=== PATIENT | female | born 1970 ===

== ENCOUNTER 2018-01-08 15:59 | Emergency (ER) | payer SELFPAY ==
[2018-01-08 16:14] VITALS: RESP 16; O2SAT 99
[2018-01-08] MEDS ORDERED: Albuterol 0.083% Inhal Sol (2.5 mg/3 mL) UD INH STA (17:55)
[2018-01-08] MEDS ORDERED: Promethazine/Cod 6.25mg-10mg/5ml Syr UD PO STA (17:56)
[2018-01-08] MEDS ORDERED: Albuterol 0.083% Inhal Sol (2.5 mg/3 mL) UD ONE (18:00)
[2018-01-08] MEDS ORDERED: Promethazine/Cod 6.25mg-10mg/5ml Syr UD ONE (18:01)
--- NOTE | 2018-01-08 18:11 | ED PDOC ---
HPI: General Adult Time Seen by Provider: 01/08/18 17:12 Chief Complaint (Nursing): Cough, Cold, Congestion Chief Complaint (Provider): cough, chest congestion History Per: Patient History/Exam Limitations: no limitations Onset/Duration Of Symptoms: Days (one week) Current Symptoms Are (Timing): Better Additional Complaint(s): Iliana Fu, a 47 year old female presents to the ED complaining of cough and chest congestion onset one week ago. Reports whenever she coughs, she has chest pain. Also has fever. She takes medication for the fever. States she went to another hospital and they told her she did not have flu. PMD: Shy Rausch Past Medical History Reviewed: Historical Data, Nursing Documentation, Vital Signs Vital Signs: Last Vital Signs Temp 98.8 F 01/08/18 16:10 Pulse 71 01/08/18 16:10 Resp 16 01/08/18 16:10 BP 149/83 01/08/18 16:10 Pulse Ox 99 01/08/18 18:20 - Medical History PMH: No Chronic Diseases - Surgical History Surgical History: Appendectomy - Family History Family History: States: Unknown Family Hx - Home Medications Home Medications: Ambulatory Orders Medication Instructions Recorded Albuterol HFA [Ventolin HFA 90 1 puff IH Q4 PRN #1 inh 01/08/18 mcg/actuation (8 g)] Azithromycin [Z-Yang] 250 mg PO ASDIR #6 tab 01/08/18 - Allergies Allergies/Adverse Reactions: Allergies Allergy/AdvReac Type Severity Reaction Status Date / Time No Known Allergies Allergy Verified 01/08/18 16:10 Review of Systems ROS Statement: Except As Marked, All Systems Reviewed And Found Negative Constitutional: Positive for: Fever (tactile) Cardiovascular: Positive for: Chest Pain (whenever she coughs), Other (chest congestion) Respiratory: Positive for: Cough Physical Exam - Reviewed Nursing Documentation Reviewed: Yes - Physical Exam Appears: Positive for: Well, Non-toxic, No Acute Distress Head Exam: Positive for: ATRAUMATIC, NORMAL INSPECTION, NORMOCEPHALIC Skin: Positive for: Normal Color, Warm, Dry Eye Exam: Positive for: EOMI, Normal appearance, PERRL ENT: Positive for: Normal ENT Inspection Neck: Positive for: Normal, Painless ROM, Supple. Negative for: Decreased ROM Cardiovascular/Chest: Positive for: Regular Rate, Rhythm. Negative for: Murmur , Bradycardia Respiratory: Positive for: Normal Breath Sounds. Negative for: Accessory Muscle Use, Wheezing, Respiratory Distress Gastrointestinal/Abdominal: Positive for: Normal Exam, Bowel Sounds, Soft. Negative for: Tenderness Back: Positive for: Normal Inspection. Negative for: L CVA Tenderness, R CVA Tenderness Extremity: Positive for: Normal ROM. Negative for: Tenderness, Pedal Edema, Deformity Neurologic/Psych: Positive for: Alert, Oriented (x3) - ECG O2 Sat by Pulse Oximetry: 99 (RA) Pulse Ox Interpretation: Normal Medical Decision Making Medical Decision Making: Time: 17:55 Initial Impression: Bronchitis and Upper respiratory tract infection Differential Diagnosis includes but is not limited to: pneumonia Initial Plan: --Chest X-ray --Albuterol 2.5mg --Phenergan/Codeine 5ml --Peak Flow Pre/Post Treatment --Influenza A B --Reevaluation Documented by Sharee Sebastian acting as a scribe for Malou Dewey MD. All medical record entries made by the Scribe were at my direction and personally dictated by me. I have reviewed the chart and agree that the record accurately reflects my personal performance of the history, physical exam, medical decision making, and the department course for this patient. I have also personally directed, reviewed, and agree with the discharge instructions and disposition. Disposition - Clinical Impression Clinical Impression: Bronchitis - Patient ED Disposition Is Patient to be Admitted: No Doctor Will See Patient In The: Office Counseled Patient/Family Regarding: Studies Performed, Diagnosis, Need For Followup - Disposition Referrals: [facility] [Outside] Disposition: Routine/Home Disposition Time: 19:20 Condition: GOOD Additional Instructions: Follow up with your PCP in 2-3 days. Prescriptions: Albuterol HFA [Ventolin HFA 90 mcg/actuation (8 g)] 1 puff IH Q4 PRN #1 inh PRN Reason: Cough Azithromycin [Z-Yang] 250 mg PO ASDIR #6 tab Instructions: Acute Bronchitis (ED)
[2018-01-08 19:45] VITALS: BP 134/81; PULSE 66; TEMP 98.2
--- NOTE | 2018-01-09 10:38 | RAD ---
HISTORY: cough fever COMPARISON: Comparison made with chest dated 04/18/2013 TECHNIQUE: Chest PA and lateral FINDINGS: LUNGS: No acute consolidation. Previously described granuloma right upper lung field less well seen on this study compared the prior exam. PLEURA: No significant pleural effusion identified. No pneumothorax apparent. CARDIOVASCULAR: Normal. OSSEOUS STRUCTURES: No significant abnormalities. VISUALIZED UPPER ABDOMEN: Normal. OTHER FINDINGS: None. IMPRESSION: No a acute consolidation. Previously described granuloma right upper lung field less well
== END 2018-01-08 19:46 | disposition home or self-care (01) ==
LOC: H.ER 15:59
DX: J40 Bronchitis, not specified as acute or chronic (principal); J84.10 Pulmonary fibrosis, unspecified

== ENCOUNTER 2019-03-24 22:22 | Inpatient (IN) | payer SELFPAY ==
[2019-03-24 22:43] VITALS: BMI 26.6
[2019-03-24] MEDS ORDERED: Morphine 4 MG/ML VIAL IVP ONE (23:14)
--- NOTE | 2019-03-24 23:16 | ED PDOC ---
HPI: General Adult Time Seen by Provider: 03/24/19 23:14 Chief Complaint (Nursing): Abdominal Pain Chief Complaint (Provider): ABDOMINAL PAIN History Per: Patient (48 Y/O FEMALE HERE WITH RUQ ABDOMINAL PAIN X 2 DAYS CONTINUOUS. HAS NAUSEA/NO VOMITING. DENIES ANY FEVERS/CHILLS. DENIES ANY DYSURIA. HAS H/O APPENDECTOMY. NOTES CONSTIPATION.) Past Medical History Reviewed: Historical Data, Nursing Documentation, Vital Signs Vital Signs: Last Vital Signs Temp 97.7 F 03/24/19 22:43 Pulse 71 03/24/19 22:43 Resp 18 03/24/19 22:43 BP 132/77 03/24/19 22:43 Pulse Ox 99 03/24/19 22:43 Primary Care Provider: Procedure,Nonphys - Medical History PMH: Hypercholesterolemia, Hyperthyroidism, Hypothyroidism - Surgical History Surgical History: Appendectomy - Family History Family History: States: Unknown Family Hx - Immunization History Hx Tetanus Toxoid Vaccination: No Hx Influenza Vaccination: No Hx Pneumococcal Vaccination: No - Home Medications Home Medications: Ambulatory Orders Medication Instructions Recorded Levothyroxine [Synthroid] 0.05 mg PO DAILY 11/26/14 Naproxen [Naprosyn] 500 mg PO Q12 03/25/19 - Allergies Allergies/Adverse Reactions: Allergies Allergy/AdvReac Type Severity Reaction Status Date / Time No Known Allergies Allergy Verified 03/24/19 22:43 Review of Systems ROS Statement: Except As Marked, All Systems Reviewed And Found Negative Gastrointestinal: Positive for: Nausea, Abdominal Pain Physical Exam - Reviewed Nursing Documentation Reviewed: Yes Vital Signs Reviewed: Yes - Physical Exam Appears: Positive for: Well, Non-toxic, No Acute Distress Head Exam: Positive for: ATRAUMATIC, NORMAL INSPECTION, NORMOCEPHALIC Skin: Positive for: Normal Color, Warm, DRY Eye Exam: Positive for: EOMI, Normal appearance, PERRL ENT: Positive for: Normal ENT Inspection Neck: Positive for: Normal, Painless ROM Cardiovascular/Chest: Positive for: Regular Rate, Rhythm Respiratory: Positive for: CNT, Normal Breath Sounds Gastrointestinal/Abdominal: Positive for: Normal Exam, Soft, Tenderness (RUQ TENDERNESS), Other (EPIGASTRIC TENDERNESS.) Back: Positive for: Normal Inspection Extremity: Positive for: Normal ROM Neurological/Psych: Positive for: Awake, Alert, Normal Tone - Laboratory Results Result Diagrams: 03/24/19 23:42 04/30/19 23:42 - ECG O2 Sat by Pulse Oximetry: 99 - Progress ED Course And Treament: NS 1 LITER WIDE OPEN MORPHINE 4MG IV X 1 DOSE ZOFRAN 4MG IV X 1 DOSE PEPCID 20 MG IV X 1 DOSE VBG REVIEWED LACTATE 2.3. US REVIEWED ACUTE VS CHRONIC CHOLECYSTITIS ZOSYN 3.375GM IV X 1 DOSE NS 2ND LITER WIDE OPEN REPEAT LACTATE 1.4 CASE D/W DR. DUGGAN HOSPITALIST PATIENT TO BE ADMITTED TO [facility] FOR CHOLECYSTITIS D/W SURG RESIDENT WHO WILL DISCUSS WITH SURG ATTENDING Medical Decision Making Medical Decision Makin:08 US FINDINGS: LIVER: Liver is slightly enlarged measuring 16.1 cm. The liver demonstrates increased echogenicity as can be seen in fatty infiltration or hepatocellular disease. No focal liver lesions identified. Portal vein demonstrates hepatopetal flow. GALLBLADDER: The gallbladder wall is thickened measuring 0.4 cm. There is gallbladder wall edema. However, the sonographic Davis sign is negative. Overall, several abnormal findings in the gallbladder which may represent mild acute or more likely chronic cholecystitis. If indicated, this could be further evaluated with HIDA scan including ejection fraction. COMMON BILE DUCT: Common bile duct is normal in caliber measuring 0.4 cm. PANCREAS: Pancreas has a normal sonographic appearance. KIDNEYS: At the right kidney is not visualized. SPLEEN: Unremarkable. AORTA: Visualized aorta and IVC appear unremarkable. IVC: Unremarkable as visualized. MISCELLANEOUS: Incidentally noted is focal fatty sparing by the steven hepatis. There are no gallstones present. However, there is echogenic sludge. IMPRESSION: 1. Mild hepatomegaly with hepatic steatosis. 2. The gallbladder wall is thickened measuring 0.4 cm. There are no gallstones present. However, there is echogenic sludge. There is gallbladder wall edema. However, the sonographic Davis sign is negative. Overall, several abnormal findings in the gallbladder which may represent mild acute or more likely chronic cholecystitis. If indicated, this could be further evaluated with HIDA scan including ejection fraction. 3. The right kidney is not visualized. 4. Portal vein demonstrates hepatopetal flow. Disposition - Clinical Impression Clinical Impression: Cholecystitis - Patient ED Disposition Is Patient to be Admitted: Yes - Disposition Disposition Time: 01:25 Condition: FAIR - Pt Status Changed To: Hospital Disposition Of: Inpatient - Admit Certification Admit to Inpatient:: After my assessment, the patient will require hospitalization for at least two midnights. This is because of the severity of symptoms shown, intensity of services needed, and/or the medical risk in this patient being treated as an outpatient.
[2019-03-24 23:54] LABS: VENOUS BLOOD GAS BASE EXCESS 1.7 mmol/L (0.0-2.0); VENOUS BLOOD GAS PCO2 48 mmHg (40-60); VENOUS BLOOD GAS PO2 40 mm/Hg (30-55); VENOUS BLOOD PH 7.37 (7.32-7.43)
[2019-03-24 23:57] LABS: BASO % 0.4 % (0.0-2.0); EOS # 0.2 K/uL (0.0-0.7); EOS % 2.3 % (0.0-4.0); HEMOGLOBIN 12.4 g/dL (12.0-16.0); LYMPH # 3.6 K/uL (1.0-4.3); LYMPH % 45.5 % (20.0-40.0); MEAN CELL VOLUME 89.1 fl (81.0-99.0); MEAN CORPUSCULAR HEMOGLOBIN 29.6 pg (27.0-31.0); MEAN CORPUSCULAR HGB CONC 33.2 g/dL (33.0-37.0); MEAN PLATELET VOLUME 8.3 fl (7.2-11.7); MONO # 0.6 K/uL (0.0-0.8); MONO % 7.6 % (0.0-10.0); NEUT # 3.5 K/uL (1.8-7.0); NEUT % 44.2 % (50.0-75.0); NRBC % 0.2 % (0.0-0.0); RBC 4.21 Mil/uL (3.80-5.20); WHITE BLOOD COUNT 7.9 K/uL (4.8-10.8)
[2019-03-24] MEDS ORDERED: Sodium Chloride 0.9% 1,000 ML IV STA (23:59)
[2019-03-25 00:06] LABS: SQUAMOUS EPITHIAL < 1 /hpf (0-5); URINE BILIRUBIN NEGATIVE (NEGATIVE); URINE BLOOD MODERATE (NEGATIVE); URINE CLARITY CLEAR (Clear); URINE COLOR STRAW (YELLOW); URINE GLUCOSE (UA) NEG (NEGATIVE); URINE LEUKOCYTE ESTERASE TRACE Leu/uL (Negative); URINE PROTEIN NEGATIVE (NEGATIVE); URINE UROBILINOGEN 0.2-1.0 mg/dL (0.2-1.0)
[2019-03-25 00:07] LABS: ALB/GLOB RATIO 1.4 (1.0-2.1); ALBUMIN 4.5 g/dL (3.5-5.0); ALT/SGPT 31 U/L (9-52); AST/SGOT 31 U/L (14-36); BLOOD UREA NITROGEN 18 mg/dl (7-17); CALCIUM 9.6 mg/dL (8.4-10.2); GFR NON-AFRICAN AMERICAN > 60; LIPASE 99 U/L (23-300)
[2019-03-25] MEDS ORDERED: Morphine 4 MG/ML VIAL ONE (00:40)
[2019-03-25] MEDS ORDERED: Piperacillin/Tazobact 3.375 GM in Sodium Chloride 0.9% 100 ML IVPB STA (00:45)
[2019-03-25] MEDS ORDERED: Sodium Chloride 0.9% 1,000 ML IV STA (01:23)
[2019-03-25] MEDS ORDERED: Piperacillin/Tazobact 3.375 gm Inj IVPB ONE (01:24)
--- NOTE | 2019-03-25 01:30 | CP.PCM.CON ---
<Papo Washington - Last Filed: 03/25/19 12:18> History of Present Illness - History of Present Illness History of Present Illness: General Surgery Consult for Dr. Evans Reason for consult: RUQ pain, suspected cholecystitis vs biliary colic 48 F with PMH of HLD and hypothyroidism present to [facility] for complaint of RUQ abdominal pain. Patient reports that abd pain began 2 days ago. She states that she has had an episode similar in the past. The previous episodes, including this one, was after eating. She rates pain as moderate and constant located in epigastrium radiating to RUQ. Symptoms aggravated by food. Admits to associated nausea but denies vomiting. Denies fever/chills, vomiting, CP, sob, diarrhea, constipation,urinary symptoms. PMD: [facility] PMH: HLD, hypothyroidism PSH: Appendectomy FH: brother with DM, Mom breast cancer ALL: NKDA SH: denies etoh, tobacco or ilicit drug use Review of Systems - Review of Systems All systems: reviewed and no additional remarkable complaints except (as per HPI) Past Patient History - Infectious Disease Hx of Infectious Diseases: None - Past Social History Smoking Status: Never Smoked - CARDIAC Hx Hypercholesterolemia: Yes - ENDOCRINE/METABOLIC Hx Hypothyroidism: Yes - GENITOURINARY/GYNECOLOGICAL Other/Comment: fibroids - PSYCHIATRIC Hx Substance Use: No - SURGICAL HISTORY Hx Appendectomy: Yes - ANESTHESIA Hx Anesthesia: Yes Meds Allergies/Adverse Reactions: Allergies Allergy/AdvReac Type Severity Reaction Status Date / Time No Known Allergies Allergy Verified 03/24/19 22:43 - Medications Medications: Current Medications Piperacillin Sod/Tazobactam (Sod 3.375 gm/ Sodium Chloride) 100 mls @ 100 mls/hr IVPB STAT STA; Protocol Stop: 03/25/19 01:44 Sodium Chloride (Sodium Chloride 0.9%) 1,000 mls @ 500 mls/hr IV .Q2H STA Stop: 03/25/19 03:22 Physical Exam - Constitutional Appears: No Acute Distress - Head Exam Head Exam: ATRAUMATIC, NORMOCEPHALIC - Eye Exam Eye Exam: EOMI, Normal appearance Pupil Exam: PERRL - ENT Exam ENT Exam: Mucous Membranes Moist - Respiratory Exam Respiratory Exam: NORMAL BREATHING PATTERN - Cardiovascular Exam Cardiovascular Exam: REGULAR RHYTHM - GI/Abdominal Exam GI & Abdominal Exam: Normal Bowel Sounds, Soft, Tenderness (RUQ/epigastrium). absent: Distended, Firm, Guarding, Rebound Additional comments: +Davis's sign - Extremities Exam Extremities exam: Positive for: normal capillary refill - Back Exam Back exam: absent: CVA tenderness (L), CVA tenderness (R) - Neurological Exam Neurological exam: Alert, CN II-XII Intact, Oriented x3 - Psychiatric Exam Psychiatric exam: Normal Affect, Normal Mood - Skin Skin Exam: Dry, Intact, Normal Color, Warm Results - Vital Signs Recent Vital Signs: Last Vital Signs Temp 97.7 F 03/24/19 22:43 Pulse 71 03/24/19 22:43 Resp 18 03/24/19 22:43 BP 132/77 03/24/19 22:43 Pulse Ox 99 03/24/19 23:16 - Labs Result Diagrams: 03/24/19 23:42 03/24/19 23:42 Labs: Laboratory Results - last 24 hr 03/24/19 03/24/19 03/24/19 23:42 23:42 23:45 WBC 7.9 RBC 4.21 Hgb 12.4 Hct 37.5 MCV 89.1 MCH 29.6 MCHC 33.2 RDW 13.0 Plt Count 264 MPV 8.3 Neut % (Auto) 44.2 L Lymph % (Auto) 45.5 H [place] % (Auto) 7.6 Eos % (Auto) 2.3 Baso % (Auto) 0.4 Neut # (Auto) 3.5 Lymph # (Auto) 3.6 [place] # (Auto) 0.6 Eos # (Auto) 0.2 Baso # (Auto) 0.0 pO2 VBG pH VBG pCO2 VBG HCO3 VBG Total CO2 VBG O2 Sat (Calc) VBG Base Excess VBG Potassium Glucose Lactate FiO2 Sodium 138 Potassium 3.7 Chloride 101 Carbon Dioxide 24 Anion Gap 17 BUN 18 H Creatinine 0.6 L Est GFR ( Amer) > 60 Est GFR (Non-Af Amer) > 60 Random Glucose 118 H Calcium 9.6 Magnesium 2.2 Total Bilirubin 0.2 AST 31 ALT 31 Alkaline Phosphatase 65 Total Protein 7.8 Albumin 4.5 Globulin 3.3 Albumin/Globulin Ratio 1.4 Lipase 99 Venous Blood Potassium Urine Color Straw Urine Clarity Clear Urine pH 6.0 Ur Specific [place] 1.009 Urine Protein Negative Urine Glucose (UA) Neg Urine Ketones Negative Urine Blood Moderate Urine Nitrate Negative Urine Bilirubin Negative Urine Urobilinogen 0.2-1.0 Ur Leukocyte Esterase Trace Urine RBC (Auto) 3 Urine Microscopic WBC 2 Ur Squamous Epith Cells < 1 03/24/19 23:52 WBC RBC Hgb Hct MCV MCH MCHC RDW Plt Count MPV Neut % (Auto) Lymph % (Auto) [place] % (Auto) Eos % (Auto) Baso % (Auto) Neut # (Auto) Lymph # (Auto) [place] # (Auto) Eos # (Auto) Baso # (Auto) pO2 40 VBG pH 7.37 VBG pCO2 48 VBG HCO3 25.6 VBG Total CO2 29.2 H VBG O2 Sat (Calc) 79.5 H VBG Base Excess 1.7 VBG Potassium 3.6 Glucose 117 H Lactate 2.3 H FiO2 21.0 Sodium 139.0 Potassium Chloride 103.0 Carbon Dioxide Anion Gap BUN Creatinine Est GFR ( Amer) Est GFR (Non-Af Amer) Random Glucose Calcium Magnesium Total Bilirubin AST ALT Alkaline Phosphatase Total Protein Albumin Globulin Albumin/Globulin Ratio Lipase Venous Blood Potassium 3.6 Urine Color Urine Clarity Urine pH Ur Specific [place] Urine Protein Urine Glucose (UA) Urine Ketones Urine Blood Urine Nitrate Urine Bilirubin Urine Urobilinogen Ur Leukocyte Esterase Urine RBC (Auto) Urine Microscopic WBC Ur Squamous Epith Cells Assessment & Plan - Assessment and Plan (Free Text) Assessment: 48 F with RUQ abdominal pain suspected biliary colic vs cholecystitis Plan: -NPO -IVF -Pain control -Antiemetics PRN -f/u HIDA -Discussed with Dr. Rutherford PGY2 - Date & Time Date: 03/25/19 Time: 04:00 <Carson Valerio - Last Filed: 03/27/19 10:26> Meds - Medications Medications: Current Medications Acetaminophen (Tylenol 325mg Tab) 650 mg PO Q4 PRN PRN Reason: Fever >100.4 F Albuterol (Ventolin Hfa 90 Mcg/Actuation (8 G)) 1 puff IH Q4 PRN PRN Reason: Cough Hydromorphone HCl (Dilaudid) 1 mg IVP Q4 PRN PRN Reason: Pain, severe (8-10) Lactated Ringer's (Lactated Ringer's) 1,000 mls @ 115 mls/hr IV .[id number] [facility] Last Admin: 03/26/19 05:51 Dose: Not Given Levothyroxine Sodium (Synthroid) 50 mcg PO DAILY@0630 [facility] Last Admin: 03/27/19 07:45 Dose: 50 mcg Ondansetron HCl (Zofran Inj) 4 mg IVP Q6 PRN PRN Reason: Nausea/Vomiting Tramadol HCl (Ultram) 50 mg PO Q4 PRN PRN Reason: Pain, moderate (4-7) Last Admin: 03/27/19 08:49 Dose: 50 mg Results - Vital Signs Recent Vital Signs: Last Vital Signs Temp 99.1 F 03/27/19 07:47 Pulse 65 03/27/19 07:47 Resp 18 03/27/19 07:47 BP 117/54 L 03/27/19 07:47 Pulse Ox 95 03/27/19 07:47 - Labs Result Diagrams: 03/26/19 05:45 03/26/19 05:45 Assessment & Plan - Assessment and Plan (Free Text) Plan: All medical record entries made by the resident were at my direction. I have reviewed the chart and agree that the record accurately reflects my personal performance of the history, physical exam, and medical decision making.
[2019-03-25] MEDS ORDERED: Albuterol HFA 90 mcg/actuation (8 g) IH PRN (01:58)
--- NOTE | 2019-03-25 01:58 | CP.PCM.HP ---
<Kd Fournier - Last Filed: 03/25/19 02:29> History of Present Illness - History of Present Illness History of Present Illness: 48 yo female patient with PMH of HLD and hypothyroidism present to the ED c/o sharp abd pain since 2 days ago. Patient reports pain in epigastrium and RUQ, she endorses several similar previous episodes that she relates with fatty foods. Today she describes pain as 8/10, no radiates, aggravating by food. Associated nausea but denies vomiting. She endorses feeling warm last night but did not check her temperature. Otherwise she denies fever, chills, vomiting, CP, sob, urinary sx, diarrhea or constipation, melena or hematemesis. PMH: at [facility] PMH: HLD, hypothyroidism PSH: Appendectomy Meds: as aaron, lelo FMH: brother with DM, Mom breast cancer NKDA SH: no etoh, tobacco or ilicit drugs. Present on Admission - Present on Admission Any Indicators Present on Admission: No Review of Systems - Review of Systems All systems: reviewed and no additional remarkable complaints except (HPI) Past Patient History - Infectious Disease Hx of Infectious Diseases: None - Past Social History Smoking Status: Never Smoked - CARDIAC Hx Hypercholesterolemia: Yes - ENDOCRINE/METABOLIC Hx Hyperthyroidism: Yes Hx Hypothyroidism: Yes - GENITOURINARY/GYNECOLOGICAL Other/Comment: fibroids - PSYCHIATRIC Hx Substance Use: No - SURGICAL HISTORY Hx Appendectomy: Yes - ANESTHESIA Hx Anesthesia: Yes Meds Allergies/Adverse Reactions: Allergies Allergy/AdvReac Type Severity Reaction Status Date / Time No Known Allergies Allergy Verified 03/24/19 22:43 Physical Exam - Constitutional Appears: Non-toxic, No Acute Distress - Head Exam Head Exam: NORMAL INSPECTION - Eye Exam Eye Exam: EOMI, PERRL. absent: Nystagmus - Neck Exam Neck exam: Positive for: Full Rom. Negative for: Lymphadenopathy, Tenderness, Thyromegaly - Respiratory Exam Respiratory Exam: Clear to Auscultation Bilateral, NORMAL BREATHING PATTERN. absent: Rales, Wheezes - Cardiovascular Exam Cardiovascular Exam: REGULAR RHYTHM, +S1, +S2. absent: Tachycardia, Systolic Murmur - GI/Abdominal Exam GI & Abdominal Exam: Normal Bowel Sounds, Soft, Tenderness (RUQ and epigastrium, Davis sign negative). absent: Distended, Guarding, Rebound, Rigid - Extremities Exam Extremities exam: Negative for: calf tenderness, pedal edema - Neurological Exam Neurological exam: Alert, CN II-XII Intact, Oriented x3 - Skin Skin Exam: Dry, Normal Color, Warm Results - Vital Signs Recent Vital Signs: Last Vital Signs Temp 97.7 F 03/24/19 22:43 Pulse 71 03/24/19 22:43 Resp 18 03/24/19 22:43 BP 132/77 03/24/19 22:43 Pulse Ox 99 03/25/19 01:36 - Labs Result Diagrams: 03/24/19 23:42 03/24/19 23:42 Labs: Laboratory Results - last 24 hr 03/24/19 03/24/19 03/24/19 23:42 23:42 23:45 WBC 7.9 RBC 4.21 Hgb 12.4 Hct 37.5 MCV 89.1 MCH 29.6 MCHC 33.2 RDW 13.0 Plt Count 264 MPV 8.3 Neut % (Auto) 44.2 L Lymph % (Auto) 45.5 H [place] % (Auto) 7.6 Eos % (Auto) 2.3 Baso % (Auto) 0.4 Neut # (Auto) 3.5 Lymph # (Auto) 3.6 [place] # (Auto) 0.6 Eos # (Auto) 0.2 Baso # (Auto) 0.0 pO2 VBG pH VBG pCO2 VBG HCO3 VBG Total CO2 VBG O2 Sat (Calc) VBG Base Excess VBG Potassium Glucose Lactate FiO2 Sodium 138 Potassium 3.7 Chloride 101 Carbon Dioxide 24 Anion Gap 17 BUN 18 H Creatinine 0.6 L Est GFR ( Amer) > 60 Est GFR (Non-Af Amer) > 60 Random Glucose 118 H Calcium 9.6 Magnesium 2.2 Total Bilirubin 0.2 AST 31 ALT 31 Alkaline Phosphatase 65 Total Protein 7.8 Albumin 4.5 Globulin 3.3 Albumin/Globulin Ratio 1.4 Lipase 99 Venous Blood Potassium Urine Color Straw Urine Clarity Clear Urine pH 6.0 Ur Specific [place] 1.009 Urine Protein Negative Urine Glucose (UA) Neg Urine Ketones Negative Urine Blood Moderate Urine Nitrate Negative Urine Bilirubin Negative Urine Urobilinogen 0.2-1.0 Ur Leukocyte Esterase Trace Urine RBC (Auto) 3 Urine Microscopic WBC 2 Ur Squamous Epith Cells < 1 03/24/19 23:52 WBC RBC Hgb Hct MCV MCH MCHC RDW Plt Count MPV Neut % (Auto) Lymph % (Auto) [place] % (Auto) Eos % (Auto) Baso % (Auto) Neut # (Auto) Lymph # (Auto) [place] # (Auto) Eos # (Auto) Baso # (Auto) pO2 40 VBG pH 7.37 VBG pCO2 48 VBG HCO3 25.6 VBG Total CO2 29.2 H VBG O2 Sat (Calc) 79.5 H VBG Base Excess 1.7 VBG Potassium 3.6 Glucose 117 H Lactate 2.3 H FiO2 21.0 Sodium 139.0 Potassium Chloride 103.0 Carbon Dioxide Anion Gap BUN Creatinine Est GFR ( Amer) Est GFR (Non-Af Amer) Random Glucose Calcium Magnesium Total Bilirubin AST ALT Alkaline Phosphatase Total Protein Albumin Globulin Albumin/Globulin Ratio Lipase Venous Blood Potassium 3.6 Urine Color Urine Clarity Urine pH Ur Specific [place] Urine Protein Urine Glucose (UA) Urine Ketones Urine Blood Urine Nitrate Urine Bilirubin Urine Urobilinogen Ur Leukocyte Esterase Urine RBC (Auto) Urine Microscopic WBC Ur Squamous Epith Cells Assessment & Plan - Assessment and Plan (Free Text) Assessment: 48 yo female with PMH of HLD, and hypothyroidism admitted for abd pain r/o acute cholecystitis. Plan: RUQ pain, r/o acute cholecystitis. - VSS stable, admit to med/surg - afebrile, WBC wnl, lactate 2.4 - ABD US: Mild hepatomegaly with hepatic steatosis. The gallbladder wall is thickened measuring 0.4 cm. No gallstones present. However, there is echogenic sludge. There is gallbladder wall edema. Sonographic Davis sign is negative. The right kidney is not visualized. - NPO - IVF - General surgery consulted, input appreciated - for HIDA in am - Pain management - zofran prn for nausea/vomiting - s/p zosyn IV once in ED Hypothyroidism - TSH 0.47 09/05/18 - hold home meds for now due to NPO HLD - diet controlled - last lipid panel 09/05/18 DVT ppx - scd only, pending Surgery eval. Case seen and examined with Dr Elena. <Bernardo Donaldson D - Last Filed: 03/26/19 09:47> Results - Vital Signs Recent Vital Signs: Last Vital Signs Temp 97.9 F 03/26/19 07:53 Pulse 55 L 03/26/19 07:53 Resp 18 03/26/19 07:53 BP 134/72 03/26/19 07:53 Pulse Ox 98 03/26/19 07:53 - Labs Result Diagrams: 03/26/19 05:45 03/26/19 05:45 Labs: Laboratory Results - last 24 hr 03/25/19 03/26/19 03/26/19 11:30 05:45 05:45 WBC 6.2 6.7 RBC 4.13 4.46 Hgb 12.4 13.2 Hct 36.9 39.4 MCV 89.2 88.2 MCH 29.9 29.5 MCHC 33.5 33.4 RDW 13.1 12.9 Plt Count 249 281 MPV 8.1 Neut % (Auto) 39.1 L Lymph % (Auto) 51.6 H [place] % (Auto) 6.4 Eos % (Auto) 2.3 Baso % (Auto) 0.6 Neut # (Auto) 2.4 Lymph # (Auto) 3.2 [place] # (Auto) 0.4 Eos # (Auto) 0.1 Baso # (Auto) 0.0 PT 10.9 INR 1.0 APTT 28.9 Sodium Potassium Chloride Carbon Dioxide Anion Gap BUN Creatinine Est GFR ( Amer) Est GFR (Non-Af Amer) Random Glucose Calcium Blood Type Antibody Screen BBK History Checked 03/26/19 03/26/19 05:45 05:45 WBC RBC Hgb Hct MCV MCH MCHC RDW Plt Count MPV Neut % (Auto) Lymph % (Auto) [place] % (Auto) Eos % (Auto) Baso % (Auto) Neut # (Auto) Lymph # (Auto) [place] # (Auto) Eos # (Auto) Baso # (Auto) PT INR APTT Sodium 140 Potassium 3.9 Chloride 103 Carbon Dioxide 27 Anion Gap 14 BUN 15 Creatinine 0.7 Est GFR ( Amer) > 60 Est GFR (Non-Af Amer) > 60 Random Glucose 96 Calcium 9.4 Blood Type A POSITIVE Antibody Screen Negative BBK History Checked Patient has bt Attending/Attestation - Attestation I have personally seen and examined this patient.: Yes I have fully participated in the care of the patient.: Yes I have reviewed all pertinent clinical information: Yes Notes (Text): 03/26/19 09:46 Patient seen and examined with resident. Case discussed and agreed with assessment and plan.
[2019-03-25 02:50] LABS: VENOUS BLOOD GAS BASE EXCESS 1.5 mmol/L (0.0-2.0); VENOUS BLOOD GAS PCO2 54 mmHg (40-60); VENOUS BLOOD GAS PO2 16 mm/Hg (30-55); VENOUS BLOOD PH 7.33 (7.32-7.43)
[2019-03-25] MEDS: Lactated Ringer's 1,000 ML IV SCH ×2 (04:46→20:54)
[2019-03-25] MEDS: Levothyroxine 50 MCG TAB PO SCH (05:56)
--- NOTE | 2019-03-25 07:46 | RAD ---
Date of service: 03/25/2019 HISTORY: ADMISSION COMPARISON: 01/08/2018 and 03/09/2013 TECHNIQUE: 1 view obtained. FINDINGS: LUNGS: No consolidation. Small granulomatous changes in the right upper lobe stable appearing. PLEURA: No significant pleural effusion identified, no pneumothorax apparent. CARDIOVASCULAR: No aortic atherosclerotic calcification present. Normal cardiac size. No pulmonary vascular congestion. OSSEOUS STRUCTURES: Right humeral head sub cortical cystic and sclerotic rimmed changes cystic arthropathic changes inferred. Bilateral acromioclavicular joint arthrosis. VISUALIZED UPPER ABDOMEN: Normal. OTHER FINDINGS: None. IMPRESSION: No acute cardiopulmonary pathology noted. Other findings as above.
--- NOTE | 2019-03-25 10:20 | CARD ---
APPROVED REPORT Date of service: 03/25/2019 EKG Measurement Heart [id number] <Conclusion> Sinus bradycardia with sinus arrhythmia Otherwise normal ECG
--- NOTE | 2019-03-25 12:31 | US ---
Date of service: 03/24/2019 HISTORY: R/O CHOLECYSTITIS COMPARISON: None. TECHNIQUE: Grayscale imaging was performed. FINDINGS: LIVER: Measures 16.1 cm in length. There is diffuse echogenicity of the liver parenchyma with focal sparing adjacent to the steven hepatitis. No mass. No intrahepatic bile duct dilatation. GALLBLADDER: The gallbladder is distended and there is mild wall thickening with pericholecystic fluid. There is gallbladder sludge without evidence for gallstones. The sonographic Davis's sign is negative. COMMON BILE DUCT: Measures 4.0 mm. No stones. No dilatation. PANCREAS: Unremarkable as visualized. No mass. No ductal dilatation. RIGHT KIDNEY: Not visualized. AORTA: No aneurysmal dilatation. IVC: Unremarkable. OTHER FINDINGS: There is hepatopetal flow in the portal vein. IMPRESSION: Distended gallbladder with mild wall thickening and pericholecystic fluid. Findings could represent acute acalculous cholecystitis in the appropriate clinical setting. Clinical follow-up is advised. No cholelithiasis or biliary dilatation. Mild hepatomegaly and fatty liver with focal fatty sparing adjacent to the steven hepatis. The right kidney is not visualized in the renal fossa. As per history provided by the patient, there is a solitary kidney. A preliminary report was provided by [employer].
[2019-03-25 12:43] LABS: BASO % 0.6 % (0.0-2.0); EOS # 0.1 K/uL (0.0-0.7); EOS % 2.3 % (0.0-4.0); HEMOGLOBIN 12.4 g/dL (12.0-16.0); LYMPH # 3.2 K/uL (1.0-4.3); LYMPH % 51.6 % (20.0-40.0); MEAN CELL VOLUME 89.2 fl (81.0-99.0); MEAN CORPUSCULAR HEMOGLOBIN 29.9 pg (27.0-31.0); MEAN CORPUSCULAR HGB CONC 33.5 g/dL (33.0-37.0); MEAN PLATELET VOLUME 8.1 fl (7.2-11.7); MONO # 0.4 K/uL (0.0-0.8); MONO % 6.4 % (0.0-10.0); NEUT # 2.4 K/uL (1.8-7.0); NEUT % 39.1 % (50.0-75.0); NRBC % 0.1 % (0.0-0.0); RBC 4.13 Mil/uL (3.80-5.20); RED CELL DISTRIBUTION WIDTH 13.1 % (11.5-14.5); WHITE BLOOD COUNT 6.2 K/uL (4.8-10.8)
--- NOTE | 2019-03-25 15:16 | NM ---
Date of service: 03/25/2019 PROCEDURE: Nuclear Medicine Hepatobiliary Scan HISTORY: r/o acute cholecystitis COMPARISON: March 24, 2019. Abdominal ultrasound TECHNIQUE: 5.29 mCi of technetium 99m Mebrofenin was administered intravenously. Planar images of the abdomen were obtained at 5 min intervals to 60 mins. Delayed images were also obtained. FINDINGS: LIVER: Timely and homogenous uptake. COMMON BILE DUCT: identified at 10 mins. GALLBLADDER: identified at 10 mins. SMALL BOWEL: Identified at 3 hr. This delays likely due to preferential filling of a distended gallbladder. IMPRESSION: Normal Hepatobiliary Scan. The cystic duct is patent.
[2019-03-26] MEDS: Lactated Ringer's 1,000 ML IV SCH ×2 (05:46→05:51)
[2019-03-26 06:58] LABS: HEMOGLOBIN 13.2 g/dL (12.0-16.0); MEAN CELL VOLUME 88.2 fl (81.0-99.0); MEAN CORPUSCULAR HEMOGLOBIN 29.5 pg (27.0-31.0); MEAN CORPUSCULAR HGB CONC 33.4 g/dL (33.0-37.0); RBC 4.46 Mil/uL (3.80-5.20); RED CELL DISTRIBUTION WIDTH 12.9 % (11.5-14.5); WHITE BLOOD COUNT 6.7 K/uL (4.8-10.8)
[2019-03-26 07:02] LABS: PROTHROMBIN TIME 10.9 Seconds (9.8-13.1)
[2019-03-26 07:05] LABS: PARTIAL THROMBOPLASTIN TIME 28.9 Seconds (25.6-37.1)
[2019-03-26 07:09] LABS: BLOOD UREA NITROGEN 15 mg/dl (7-17); CALCIUM 9.4 mg/dL (8.4-10.2); GFR NON-AFRICAN AMERICAN > 60
[2019-03-26] MEDS: Levothyroxine 50 MCG TAB PO SCH (09:06)
[2019-03-26] MEDS ORDERED: Bupivacaine 0.5% Inj(30mL) ONE (12:57)
[2019-03-26] MEDS ORDERED: Rocuronium 10 mg/ml (5 ml) ONE (13:04)
[2019-03-26] MEDS ORDERED: Propofol 10 mg/ml Inj (20 ML) ONE (13:04)
[2019-03-26] MEDS ORDERED: Succinylcholine Chloride 20 mg/ml Syr (5 ml) IV ONE (13:04)
[2019-03-26] MEDS ORDERED: Lidocaine 4% (Laryng-O-Jet) Kit MM ONE (13:04)
[2019-03-26] MEDS ORDERED: Phenylephrine 10 mg/ml Inj ONE (13:17)
--- NOTE | 2019-03-26 13:24 | CP.PCM.PN ---
<Peggy Jeffrey - Last Filed: 03/26/19 13:26> Subjective - Date & Time of Evaluation Date of Evaluation: 03/26/19 Time of Evaluation: 13:23 - Subjective Subjective: Pt seen bedside, coreen hiren planned for today. No complains, mild epigastric pain still present. Denies nausea, vomiting, fever, chills. No acute events overnight. Objective - Vital Signs/Intake and Output Vital Signs (last 24 hours): Temp Pulse Resp BP Pulse Ox 97.7 F 67 20 145/78 97 03/26/19 12:50 03/26/19 12:50 03/26/19 12:50 03/26/19 12:50 03/26/19 12:50 - Medications Medications: Current Medications Albuterol (Ventolin Hfa 90 Mcg/Actuation (8 G)) 1 puff IH Q4 PRN PRN Reason: Cough Lactated Ringer's (Lactated Ringer's) 1,000 mls @ 115 mls/hr IV .Q8H42M [facility] Last Admin: 03/26/19 05:51 Dose: Not Given Acetaminophen (Ofirmev) 100 mls @ 400 mls/hr IVPB ONCE ONE; Protocol Stop: 03/26/19 13:29 Ketorolac Tromethamine (Toradol) 30 mg IVP Q6 PRN PRN Reason: Pain, moderate (4-7) Levothyroxine Sodium (Synthroid) 50 mcg PO DAILY@0630 [facility] Last Admin: 03/26/19 09:06 Dose: 50 mcg Morphine Sulfate (Morphine) 2 mg IVP Q4 PRN PRN Reason: Pain, severe (8-10) Ondansetron HCl (Zofran Inj) 4 mg IVP Q6 PRN PRN Reason: Nausea/Vomiting - Labs Labs: 03/26/19 05:45 03/26/19 05:45 PT 10.9 Seconds (9.8-13.1) 03/26/19 05:45 INR 1.0 03/26/19 05:45 APTT 28.9 Seconds (25.6-37.1) 03/26/19 05:45 - Constitutional Appears: Non-toxic, No Acute Distress - Head Exam Head Exam: NORMAL INSPECTION - Eye Exam Eye Exam: Normal appearance - ENT Exam ENT Exam: Mucous Membranes Moist - Respiratory Exam Respiratory Exam: Clear to Ausculation Bilateral, NORMAL BREATHING PATTERN - Cardiovascular Exam Cardiovascular Exam: REGULAR RHYTHM - GI/Abdominal Exam GI & Abdominal Exam: Tenderness (epigastric), Normal Bowel Sounds - Extremities Exam Extremities Exam: Normal Inspection - Back Exam Back Exam: NORMAL INSPECTION - Neurological Exam Neurological Exam: Alert, Awake, Oriented x3 - Psychiatric Exam Psychiatric exam: Normal Affect, Normal Mood - Skin Skin Exam: Normal Color, Warm Assessment and Plan - Assessment and Plan (Free Text) Plan: RUQ pain,cholelithiasis - afebrile, WBC wnl - ABD US: Mild hepatomegaly with hepatic steatosis. The gallbladder wall is thickened measuring 0.4 cm. No gallstones present. However, there is echogenic sludge. There is gallbladder wall edema. Sonographic Davis sign is negative. The right kidney is not visualized. - HIDA: negative - NPO - IVF - General surgery consulted, input appreciated - requested for OR today - Pain management - zofran prn for nausea/vomiting - s/p zosyn IV once in ED Hypothyroidism - TSH 0.47 09/05/18 - hold home meds for now due to NPO HLD - diet controlled - last lipid panel 09/05/18 DVT ppx - scd only <DonaldsonArleenBernardo D - Last Filed: 03/26/19 14:29> Objective - Vital Signs/Intake and Output Vital Signs (last 24 hours): Temp Pulse Resp BP Pulse Ox 97.7 F 67 20 145/78 97 03/26/19 12:50 03/26/19 12:50 03/26/19 12:50 03/26/19 12:50 03/26/19 12:50 Intake and Output: 03/26/19 03/26/19 06:59 18:59 Intake Total 0 Balance 0 - Medications Medications: Current Medications Albuterol (Ventolin Hfa 90 Mcg/Actuation (8 G)) 1 puff IH Q4 PRN PRN Reason: Cough Lactated Ringer's (Lactated Ringer's) 1,000 mls @ 115 mls/hr IV .Q8H42M [facility] Last Admin: 03/26/19 05:51 Dose: Not Given Ketorolac Tromethamine (Toradol) 30 mg IVP Q6 PRN PRN Reason: Pain, moderate (4-7) Levothyroxine Sodium (Synthroid) 50 mcg PO DAILY@0630 [facility] Last Admin: 03/26/19 09:06 Dose: 50 mcg Morphine Sulfate (Morphine) 2 mg IVP Q4 PRN PRN Reason: Pain, severe (8-10) Ondansetron HCl (Zofran Inj) 4 mg IVP Q6 PRN PRN Reason: Nausea/Vomiting - Labs Labs: 03/26/19 05:45 03/26/19 05:45 PT 10.9 Seconds (9.8-13.1) 03/26/19 05:45 INR 1.0 03/26/19 05:45 APTT 28.9 Seconds (25.6-37.1) 03/26/19 05:45 Attending/Attestation - Attestation I have personally seen and examined this patient.: Yes I have fully participated in the care of the patient.: Yes I have reviewed all pertinent clinical information, including history, physical exam and plan: Yes Notes (Text): 03/26/19 14:29 Patient seen and examined with resident. Case discussed and agreed with assessment and plan
[2019-03-26] MEDS ORDERED: Midazolam 2 MG/2 ML VIAL ONE (13:47)
[2019-03-26] MEDS ORDERED: Bupivacaine 0.5% 50 ML IJ ONE ×2 (14:00)
[2019-03-26] MEDS ORDERED: Morphine 5 mg/10 ml preservative-free Inj(Duramorph) ONE (14:14)
[2019-03-26] MEDS ORDERED: Neostigmine 1:1000 (1 mg/ml) Inj ONE (15:04)
[2019-03-26] MEDS ORDERED: HYDROmorphone 0.5 mg/0.5 ml ISec IVP PRN (15:18)
--- NOTE | 2019-03-26 15:19 | PCM.SURG1 ---
Surgeon's Initial Post Op Note - Surgeon's Notes Surgeon: Dr. Evans Product [employer] Supervisor: PGY2, Katia PGY1 Type of Anesthesia: General Endo Anesthesia Administered By: Dr. Negrete Pre-Operative Diagnosis: Acute Cholecystitis Operative Findings: Chronically Inflammed Gallbladder. Critical View of Saftey Obtained. Large stone in GB. For Details see op note Post-Operative Diagnosis: As Above Operation Performed: 1. Laparoscopic Cholecystectomy Specimen/Specimens Removed: 1. Gallbladder. 2. Bile Fluid Estimated Blood Loss: EBL {In ML}: 5 Drains Used: No Drains Post-Op Condition: Good Date of Surgery/Procedure: 03/26/19 (Dictation#: [id number]) Time of Surgery/Procedure: 15:20
[2019-03-26] MEDS ORDERED: Lactated Ringer's 1,000 ML IV SCH (15:30)
--- NOTE | 2019-03-27 03:12 | OP ---
PROCEDURE DATE: 03/26/2019 SURGEON: Carson Waller MD [facility] NET: Francesco Mcguire DO, PGY-2; Francis Montalvo DO, PGY-1. ANESTHESIA: General. ANESTHESIOLOGIST: Frederick Negrete MD PREOPERATIVE DIAGNOSIS: Acute cholecystitis. POSTOPERATIVE DIAGNOSIS: Acute on chronic cholecystitis. PROCEDURES: 1. Laparoscopic cholecystectomy. 2. Aspiration of gallbladder. ESTIMATED BLOOD LOSS: Less than 5 mL. SPECIMEN: 1. Gallbladder. 2. Bile for culture. INDICATIONS FOR SURGERY: This is a 48-year-old female who came in with severe midepigastric to right upper quadrant pain. After further workup, ultrasound showed a large stone in the neck of the gallbladder. The patient was then decided to take to the operating room for laparoscopic possible open cholecystectomy. Risks and benefits were explained to the patient. The patient agreed to the plan set forth. DESCRIPTION OF PROCEDURE: The patient was brought into the operating room and placed in supine position. General anesthesia was induced and endotracheal tube was confirmed placement with end-tidal CO2. The patient was hooked up with EKG monitors and pulse oximetry. Timeout was taken verifying correct patient, procedure, and laterality. The patient was then prepped and draped in the usual sterile fashion using chlorhexidine. OG tube was placed for decompression of the stomach. An incision was made at the skin line just above the umbilicus for 5 mm incision. Port was dilated using a tonsil. The entry into the abdomen was used with a Veress needle technique. Fascia was elevated and a Veress needle was inserted. Proper position was confirmed with aspiration and flushed with a saline meniscus test. Initial opening pressure was 2 mmHg. Abdomen was then continued and insufflated to 15 mmHg with carbon dioxide. The patient tolerated the insufflation well. At this time, a 5 mm 30-degree scope was then used to enter into the abdomen using a Visiport technique layer by layer. Confirmation was made when the abdomen was appropriately entered. Laparoscope was then inserted into the abdomen and was inspected. No injuries were made from the initial trocar placement. Additional trocars were placed at the following locations. A 10 mm trocar just right to the epigastrium. Two 5 mm ports were placed laterally. Prior to the insertion, the skin was infiltrated with local anesthetic. The abdomen was inspected, and there were pretty significant adhesions to the gallbladder dome in the infundibulum. At this time, the table was placed in reverse Trendelenburg with the right side up. Continuation of filmy adhesions between the gallbladder and the omentum were dissected off. The dome of the gallbladder was then grasped with an atraumatic grasper and elevated above the liver. The infundibulum was also grasped with the atraumatic grasper and this maneuver helped to expose Calot's triangle. The peritoneum overlying the gallbladder was dissected off. However, prior to further dissection due to the dilatation of the gallbladder, 50 mL was aspirated from the gallbladder to allow decompression of the gallbladder. Continuation toward the Calot's triangle. Dissection was made and allowed the appropriate exposure of the cystic duct, cystic artery, and the liver posteriorly. The critical view was appropriately achieved noticing the cystic duct going directly into the gallbladder. The cystic duct was then doubly clipped and then divided followed by the cystic artery that was then doubly clipped and divided. The gallbladder was then dissected off from its peritoneal attachments using electrocautery hook. The dissection continued and hemostasis was checked and the gallbladder had one large contained stone. The gallbladder then was completely dissected off the liver bed. The liver bed was then checked and appropriate hemostasis was achieved using electrocautery. The specimen was then placed in EndoCatch bag. It was taken out of the 10 mm port to subxiphoid. The gallbladder was then passed off the table as specimen. It was noted there was one large stone in the gallbladder. There was no evidence of bleeding from the gallbladder fossa or cystic artery or any leakage of bile from the cystic duct stump. Appropriate suction was done at the liver bed. The secondary trocars were then removed under direct vision. No bleeding was noted from the trocar site. The laparoscope was withdrawn and the umbilical trocar was removed. The abdomen was then allowed to collapse. The fascia subxiphoid 10 mm port was closed with an interrupted 0 Vicryl on a UR-6. The skin was then closed with subcuticular sutures with 4-0 Monocryl. Dermabond was then placed on top as a sterile dressing. OG tube was removed at this time. The patient was awaken and taken to the postanesthesia care unit in stable condition. All counts were correct at the end of the case. Dr. Evans was present and participated in all aspects of this case. Francesco Mcguire DO Carson MD Christin
--- NOTE | 2019-03-27 07:27 | CP.PCM.PN ---
<Francesco Mcguire - Last Filed: 03/27/19 07:42> Subjective - Date & Time of Evaluation Date of Evaluation: 03/27/19 Time of Evaluation: 07:42 - Subjective Subjective: Surgery Progress Note- Dr. Evans Tolerating Diet. Denies nausea, vomiting. Incisions C/D/I w/ dermabond. + OOB and ambulating. Denies fevers, chills Objective - Vital Signs/Intake and Output Vital Signs (last 24 hours): Temp Pulse Resp BP Pulse Ox 98.4 F 90 20 113/58 L 92 L 03/26/19 23:36 03/26/19 23:36 03/26/19 23:36 03/26/19 23:36 03/26/19 23:36 - Medications Medications: Current Medications Acetaminophen (Tylenol 325mg Tab) 650 mg PO Q4 PRN PRN Reason: Fever >100.4 F Albuterol (Ventolin Hfa 90 Mcg/Actuation (8 G)) 1 puff IH Q4 PRN PRN Reason: Cough Hydromorphone HCl (Dilaudid) 1 mg IVP Q4 PRN PRN Reason: Pain, severe (8-10) Lactated Ringer's (Lactated Ringer's) 1,000 mls @ 115 mls/hr IV .Q8H42M [facility] Last Admin: 03/26/19 05:51 Dose: Not Given Levothyroxine Sodium (Synthroid) 50 mcg PO DAILY@0630 [facility] Last Admin: 03/26/19 09:06 Dose: 50 mcg Ondansetron HCl (Zofran Inj) 4 mg IVP Q6 PRN PRN Reason: Nausea/Vomiting Tramadol HCl (Ultram) 50 mg PO Q4 PRN PRN Reason: Pain, moderate (4-7) Last Admin: 03/26/19 20:52 Dose: 50 mg - Labs Labs: 03/26/19 05:45 03/26/19 05:45 PT 10.9 Seconds (9.8-13.1) 03/26/19 05:45 INR 1.0 03/26/19 05:45 APTT 28.9 Seconds (25.6-37.1) 03/26/19 05:45 - Constitutional Appears: Non-toxic - Eye Exam Eye Exam: EOMI. absent: Scleral icterus - Respiratory Exam Respiratory Exam: NORMAL BREATHING PATTERN. absent: Accessory Muscle Use, Respiratory Distress - Cardiovascular Exam Cardiovascular Exam: REGULAR RHYTHM. absent: Bradycardia, Tachycardia - GI/Abdominal Exam GI & Abdominal Exam: Soft, Tenderness (appropriately tender around incision area). absent: Distended, Firm, Guarding, Rigid - Extremities Exam Extremities Exam: absent: Calf Tenderness - Neurological Exam Neurological Exam: Alert, Awake, Oriented x3 - Skin Skin Exam: Intact, Warm Assessment and Plan - Assessment and Plan (Free Text) Assessment: 48F s/p lap cholecystectomy POD#1 Plan: - tolerating diet - cleared for discharge from Surgical stand point - diet as tolerated - follow up in clinic in 2 weeks. - further recs per Dr. Young PGY2. <Carson Valerio - Last Filed: 03/27/19 10:20> Objective - Vital Signs/Intake and Output Vital Signs (last 24 hours): Temp Pulse Resp BP Pulse Ox 99.1 F 65 18 117/54 L 95 03/27/19 07:47 03/27/19 07:47 03/27/19 07:47 03/27/19 07:47 03/27/19 07:47 - Medications Medications: Current Medications Acetaminophen (Tylenol 325mg Tab) 650 mg PO Q4 PRN PRN Reason: Fever >100.4 F Albuterol (Ventolin Hfa 90 Mcg/Actuation (8 G)) 1 puff IH Q4 PRN PRN Reason: Cough Hydromorphone HCl (Dilaudid) 1 mg IVP Q4 PRN PRN Reason: Pain, severe (8-10) Lactated Ringer's (Lactated Ringer's) 1,000 mls @ 115 mls/hr IV .Q8H42M [facility] Last Admin: 03/26/19 05:51 Dose: Not Given Levothyroxine Sodium (Synthroid) 50 mcg PO DAILY@0630 [facility] Last Admin: 03/27/19 07:45 Dose: 50 mcg Ondansetron HCl (Zofran Inj) 4 mg IVP Q6 PRN PRN Reason: Nausea/Vomiting Tramadol HCl (Ultram) 50 mg PO Q4 PRN PRN Reason: Pain, moderate (4-7) Last Admin: 03/27/19 08:49 Dose: 50 mg - Labs Labs: 03/26/19 05:45 03/26/19 05:45 PT 10.9 Seconds (9.8-13.1) 03/26/19 05:45 INR 1.0 03/26/19 05:45 APTT 28.9 Seconds (25.6-37.1) 03/26/19 05:45 Assessment and Plan - Assessment and Plan (Free Text) Plan: All medical record entries made by the resident were at my direction. I have reviewed the chart and agree that the record accurately reflects my personal performance of the history, physical exam, and medical decision making.
[2019-03-27] MEDS: Levothyroxine 50 MCG TAB PO SCH (07:45)
[2019-03-27 07:48] VITALS: BP 117/54; PULSE 65; RESP 18; TEMP 99.1; O2SAT 95
--- NOTE | 2019-03-27 10:13 | CP.PCM.DIS ---
<Peggy Jeffrey - Last Filed: 03/27/19 10:15> Provider - Provider Date of Admission: 03/25/19 01:25 Attending physician: Anette Elena MD Consults: 03/25/19 01:29 Surgical [General Surgery Consult] Stat Comment: ACUTE VS CHRONIC CHOLECYSTITIS Consulting Provider: Carson Valerio Consulting Physician: Carson Valerio Reason for Consult: ACUTE VS CHRONIC CHOLECYSTITIS 03/25/19 09:00 Social Work Referral Routine Comment: lives alone Physician Instructions: Reason For Exam: Lives alone Time Spent in preparation of Discharge (in minutes): 20 Diagnosis - Discharge Diagnosis (1) Abdominal pain Status: Resolved Hospital Course - Lab Results Lab Results: Micro Results 03/24/19 23:42 Blood Blood Culture - Preliminary NO GROWTH AFTER 48 HOURS 03/24/19 23:45 Urine Random Urine Culture - Final No Growth (<1,000 CFU/ML) Most Recent Lab Values WBC 6.7 K/uL (4.8-10.8) 03/26/19 05:45 RBC 4.46 Mil/uL (3.80-5.20) 03/26/19 05:45 Hgb 13.2 g/dL (12.0-16.0) 03/26/19 05:45 Hct 39.4 % (34.0-47.0) 03/26/19 05:45 MCV 88.2 fl (81.0-99.0) 03/26/19 05:45 MCH 29.5 pg (27.0-31.0) 03/26/19 05:45 MCHC 33.4 g/dL (33.0-37.0) 03/26/19 05:45 RDW 12.9 % (11.5-14.5) 03/26/19 05:45 Plt Count 281 K/uL (130-400) 03/26/19 05:45 MPV 8.1 fl (7.2-11.7) 03/25/19 11:30 Neut % (Auto) 39.1 % (50.0-75.0) L 03/25/19 11:30 Lymph % (Auto) 51.6 % (20.0-40.0) H 03/25/19 11:30 Jasper % (Auto) 6.4 % (0.0-10.0) 03/25/19 11:30 Eos % (Auto) 2.3 % (0.0-4.0) 03/25/19 11:30 Baso % (Auto) 0.6 % (0.0-2.0) 03/25/19 11:30 Neut # (Auto) 2.4 K/uL (1.8-7.0) 03/25/19 11:30 Lymph # (Auto) 3.2 K/uL (1.0-4.3) 03/25/19 11:30 Jasper # (Auto) 0.4 K/uL (0.0-0.8) 03/25/19 11:30 Eos # (Auto) 0.1 K/uL (0.0-0.7) 03/25/19 11:30 Baso # (Auto) 0.0 K/uL (0.0-0.2) 03/25/19 11:30 PT 10.9 Seconds (9.8-13.1) 03/26/19 05:45 INR 1.0 03/26/19 05:45 APTT 28.9 Seconds (25.6-37.1) 03/26/19 05:45 pO2 16 mm/Hg (30-55) L 03/25/19 02:47 VBG pH 7.33 (7.32-7.43) 03/25/19 02:47 VBG pCO2 54 mmHg (40-60) 03/25/19 02:47 VBG HCO3 24.0 mmol/L 03/25/19 02:47 VBG Total CO2 30.2 mmol/L (22-28) H 03/25/19 02:47 VBG O2 Sat (Calc) 20.4 % (40-65) L 03/25/19 02:47 VBG Base Excess 1.5 mmol/L (0.0-2.0) 03/25/19 02:47 VBG Potassium 4.5 mmol/L (3.6-5.2) 03/25/19 02:47 Sodium 140.0 mmol/L (132-148) 03/25/19 02:47 Chloride 106.0 mmol/L (98-107) 03/25/19 02:47 Glucose 100 mg/dL (65-105) 03/25/19 02:47 Lactate 1.4 mmol/L (0.7-2.1) 03/25/19 02:47 FiO2 21.0 % 03/25/19 02:47 Sodium 140 mmol/l (132-148) 03/26/19 05:45 Potassium 3.9 MMOL/L (3.6-5.0) 03/26/19 05:45 Chloride 103 mmol/L (98-107) 03/26/19 05:45 Carbon Dioxide 27 mmol/L (22-30) 03/26/19 05:45 Anion Gap 14 (10-20) 03/26/19 05:45 BUN 15 mg/dl (7-17) 03/26/19 05:45 Creatinine 0.7 mg/dl (0.7-1.2) 03/26/19 05:45 Est GFR ( Amer) > 60 03/26/19 05:45 Est GFR (Non-Af Amer) > 60 03/26/19 05:45 Random Glucose 96 mg/dL (65-105) 03/26/19 05:45 Calcium 9.4 mg/dL (8.4-10.2) 03/26/19 05:45 Magnesium 2.2 MG/DL (1.6-2.3) 03/24/19 23:42 Total Bilirubin 0.2 mg/dl (0.2-1.3) 03/24/19 23:42 AST 31 U/L (14-36) 03/24/19 23:42 ALT 31 U/L (9-52) 03/24/19 23:42 Alkaline Phosphatase 65 U/L (38-126) 03/24/19 23:42 Total Protein 7.8 G/DL (6.3-8.2) 03/24/19 23:42 Albumin 4.5 g/dL (3.5-5.0) 03/24/19 23:42 Globulin 3.3 gm/dL (2.2-3.9) 03/24/19 23:42 Albumin/Globulin Ratio 1.4 (1.0-2.1) 03/24/19 23:42 Lipase 99 U/L (23-300) 03/24/19 23:42 Venous Blood Potassium 4.5 mmol/L (3.6-5.2) 03/25/19 02:47 Urine Color Straw (YELLOW) 03/24/19 23:45 Urine Clarity Clear (Clear) 03/24/19 23:45 Urine pH 6.0 (5.0-8.0) 03/24/19 23:45 Ur Specific Ing[place] 1.009 (1.003-1.030) 03/24/19 23:45 Urine Protein Negative mg/dL (NEGATIVE) 03/24/19 23:45 Urine Glucose (UA) Neg mg/dL (NEGATIVE) 03/24/19 23:45 Urine Ketones Negative mg/dL (NEGATIVE) 03/24/19 23:45 Urine Blood Moderate (NEGATIVE) 03/24/19 23:45 Urine Nitrate Negative (NEGATIVE) 03/24/19 23:45 Urine Bilirubin Negative (NEGATIVE) 03/24/19 23:45 Urine Urobilinogen 0.2-1.0 mg/dL (0.2-1.0) 03/24/19 23:45 Ur Leukocyte Esterase Trace Yana/uL (Negative) 03/24/19 23:45 Urine RBC (Auto) 3 /hpf (0-3) 03/24/19 23:45 Urine Microscopic WBC 2 /hpf (0-5) 03/24/19 23:45 Ur Squamous Epith Cells < 1 /hpf (0-5) 03/24/19 23:45 Urine HCG, Qual Negative (NEGATIVE) 03/25/19 06:50 Blood Type A POSITIVE 03/26/19 05:45 Antibody Screen Negative 03/26/19 05:45 BBK History Checked Patient has bt 03/26/19 05:45 - Hospital Course Hospital Course: 48-year-old female presented to [facility] ED and was admitted for abdominal pain, r/o cholecystitis. Abd U/S showed gallbladder wall thickened measuring 0.4 cm. No gallstones present. However, there is echogenic sludge. There is gallbladder wall edema. Sonographic Davis sign is negative. HIDA negative. Surgery recommended lap cholecysectomy which was tolerated well by patient. Ambulating and voiding without difficulty. Denies nausea and vomiting. Afebrile, tolerating PO diet. Follow-up with surgery within 1 week. Discharge Exam - Head Exam Head Exam: NORMAL INSPECTION - Eye Exam Eye Exam: Normal appearance - ENT Exam ENT Exam: Mucous Membranes Moist - Respiratory Exam Respiratory Exam: NORMAL BREATHING PATTERN, UNREMARKABLE. absent: Respiratory Distress - Cardiovascular Exam Cardiovascular Exam: REGULAR RHYTHM - GI/Abdominal Exam GI & Abdominal Exam: Tenderness (around laporoscopic sites, mild) - Neurological Exam Neurological exam: Alert, Normal Gait, Oriented x3 - Psychiatric Exam Psychiatric exam: Normal Affect, Normal Mood - Skin Skin Exam: Dry, Intact, Normal Color, Warm Discharge Plan - Discharge Medications Prescriptions: Albuterol HFA [Ventolin HFA 90 mcg/actuation (8 g)] 1 puff IH Q4 PRN #1 inhaler PRN Reason: Cough Levothyroxine [Synthroid] 0.05 mg PO DAILY #30 tab Naproxen [Naprosyn] 500 mg PO Q12 #10 tablet - Follow Up Plan Condition: FAIR Disposition: HOME/ ROUTINE Instructions: Cholecystectomy (DC), Cholecystectomy, Laparoscopic Surgery, Laceration Repair With Glue (DC) Additional Instructions: hacer margo con krueger doctor primario dentro de 1 semana Referrals: [facility] [Outside] Carson Valerio MD [Staff Provider] - <Courtney Gama - Last Filed: 03/27/19 14:58> Provider - Provider Date of Admission: 03/25/19 01:25 Attending physician: Anette Elena MD Consults: 03/25/19 01:29 Surgical [General Surgery Consult] Stat Comment: ACUTE VS CHRONIC CHOLECYSTITIS Consulting Provider: Carson Valerio Consulting Physician: Carson Valerio Reason for Consult: ACUTE VS CHRONIC CHOLECYSTITIS 03/25/19 09:00 Social Work Referral Routine Comment: lives alone Physician Instructions: Reason For Exam: Lives alone Hospital Course - Lab Results Lab Results: Micro Results 03/24/19 23:42 Blood Blood Culture - Preliminary NO GROWTH AFTER 48 HOURS 03/24/19 23:45 Urine Random Urine Culture - Final No Growth (<1,000 CFU/ML) Most Recent Lab Values WBC 6.7 K/uL (4.8-10.8) 03/26/19 05:45 RBC 4.46 Mil/uL (3.80-5.20) 03/26/19 05:45 Hgb 13.2 g/dL (12.0-16.0) 03/26/19 05:45 Hct 39.4 % (34.0-47.0) 03/26/19 05:45 MCV 88.2 fl (81.0-99.0) 03/26/19 05:45 MCH 29.5 pg (27.0-31.0) 03/26/19 05:45 MCHC 33.4 g/dL (33.0-37.0) 03/26/19 05:45 RDW 12.9 % (11.5-14.5) 03/26/19 05:45 Plt Count 281 K/uL (130-400) 03/26/19 05:45 MPV 8.1 fl (7.2-11.7) 03/25/19 11:30 Neut % (Auto) 39.1 % (50.0-75.0) L 03/25/19 11:30 Lymph % (Auto) 51.6 % (20.0-40.0) H 03/25/19 11:30 Jasper % (Auto) 6.4 % (0.0-10.0) 03/25/19 11:30 Eos % (Auto) 2.3 % (0.0-4.0) 03/25/19 11:30 Baso % (Auto) 0.6 % (0.0-2.0) 03/25/19 11:30 Neut # (Auto) 2.4 K/uL (1.8-7.0) 03/25/19 11:30 Lymph # (Auto) 3.2 K/uL (1.0-4.3) 03/25/19 11:30 Jasper # (Auto) 0.4 K/uL (0.0-0.8) 03/25/19 11:30 Eos # (Auto) 0.1 K/uL (0.0-0.7) 03/25/19 11:30 Baso # (Auto) 0.0 K/uL (0.0-0.2) 03/25/19 11:30 PT 10.9 Seconds (9.8-13.1) 03/26/19 05:45 INR 1.0 03/26/19 05:45 APTT 28.9 Seconds (25.6-37.1) 03/26/19 05:45 pO2 16 mm/Hg (30-55) L 03/25/19 02:47 VBG pH 7.33 (7.32-7.43) 03/25/19 02:47 VBG pCO2 54 mmHg (40-60) 03/25/19 02:47 VBG HCO3 24.0 mmol/L 03/25/19 02:47 VBG Total CO2 30.2 mmol/L (22-28) H 03/25/19 02:47 VBG O2 Sat (Calc) 20.4 % (40-65) L 03/25/19 02:47 VBG Base Excess 1.5 mmol/L (0.0-2.0) 03/25/19 02:47 VBG Potassium 4.5 mmol/L (3.6-5.2) 03/25/19 02:47 Sodium 140.0 mmol/L (132-148) 03/25/19 02:47 Chloride 106.0 mmol/L (98-107) 03/25/19 02:47 Glucose 100 mg/dL (65-105) 03/25/19 02:47 Lactate 1.4 mmol/L (0.7-2.1) 03/25/19 02:47 FiO2 21.0 % 03/25/19 02:47 Sodium 140 mmol/l (132-148) 03/26/19 05:45 Potassium 3.9 MMOL/L (3.6-5.0) 03/26/19 05:45 Chloride 103 mmol/L (98-107) 03/26/19 05:45 Carbon Dioxide 27 mmol/L (22-30) 03/26/19 05:45 Anion Gap 14 (10-20) 03/26/19 05:45 BUN 15 mg/dl (7-17) 03/26/19 05:45 Creatinine 0.7 mg/dl (0.7-1.2) 03/26/19 05:45 Est GFR ( Amer) > 60 03/26/19 05:45 Est GFR (Non-Af Amer) > 60 03/26/19 05:45 Random Glucose 96 mg/dL (65-105) 03/26/19 05:45 Calcium 9.4 mg/dL (8.4-10.2) 03/26/19 05:45 Magnesium 2.2 MG/DL (1.6-2.3) 03/24/19 23:42 Total Bilirubin 0.2 mg/dl (0.2-1.3) 03/24/19 23:42 AST 31 U/L (14-36) 03/24/19 23:42 ALT 31 U/L (9-52) 03/24/19 23:42 Alkaline Phosphatase 65 U/L (38-126) 03/24/19 23:42 Total Protein 7.8 G/DL (6.3-8.2) 03/24/19 23:42 Albumin 4.5 g/dL (3.5-5.0) 03/24/19 23:42 Globulin 3.3 gm/dL (2.2-3.9) 03/24/19 23:42 Albumin/Globulin Ratio 1.4 (1.0-2.1) 03/24/19 23:42 Lipase 99 U/L (23-300) 03/24/19 23:42 Venous Blood Potassium 4.5 mmol/L (3.6-5.2) 03/25/19 02:47 Urine Color Straw (YELLOW) 03/24/19 23:45 Urine Clarity Clear (Clear) 03/24/19 23:45 Urine pH 6.0 (5.0-8.0) 03/24/19 23:45 Ur Specific [place] 1.009 (1.003-1.030) 03/24/19 23:45 Urine Protein Negative mg/dL (NEGATIVE) 03/24/19 23:45 Urine Glucose (UA) Neg mg/dL (NEGATIVE) 03/24/19 23:45 Urine Ketones Negative mg/dL (NEGATIVE) 03/24/19 23:45 Urine Blood Moderate (NEGATIVE) 03/24/19 23:45 Urine Nitrate Negative (NEGATIVE) 03/24/19 23:45 Urine Bilirubin Negative (NEGATIVE) 03/24/19 23:45 Urine Urobilinogen 0.2-1.0 mg/dL (0.2-1.0) 03/24/19 23:45 Ur Leukocyte Esterase Trace Yana/uL (Negative) 03/24/19 23:45 Urine RBC (Auto) 3 /hpf (0-3) 03/24/19 23:45 Urine Microscopic WBC 2 /hpf (0-5) 03/24/19 23:45 Ur Squamous Epith Cells < 1 /hpf (0-5) 03/24/19 23:45 Urine HCG, Qual Negative (NEGATIVE) 03/25/19 06:50 Blood Type A POSITIVE 03/26/19 05:45 Antibody Screen Negative 03/26/19 05:45 BBK History Checked Patient has bt 03/26/19 05:45 Attending/Attestation - Attestation I have personally seen and examined this patient.: Yes I have fully participated in the care of the patient.: Yes I have reviewed all pertinent clinical information, including history, physical exam and plan: Yes Notes (Text): Discharge Diagnoses: Acute Cholecystitis s/p Lap Cholecystrectomy Hypothyroidism - Pt tolerating PO diet - + Flatus and BM, Normoactive BS - voiding freely -Pain mgt, Incentive spirometry, SCD - d/c home, ff up with Surgery in 1 wk
== END 2019-03-27 14:42 | disposition home or self-care (01) | DRG 263 ==
LOC: H.ER 22:22 → H.ERHOLD 03-25 01:25 → H.MEDSURG1 03-25 03:25
PROVIDERS: ADMIT Internal Medicine; ATTEND Internal Medicine
PROC: 0FT44ZZ Resection of Gallbladder, Percutaneous Endoscopic Approach (ICD-10-PCS; principal; 2019-03-26 13:00)
DX: K81.2 Acute cholecystitis with chronic cholecystitis (principal); R16.0 Hepatomegaly, not elsewhere classified; E03.9 Hypothyroidism, unspecified; E78.5 Hyperlipidemia, unspecified; E78.00 Pure hypercholesterolemia, unspecified